=== PATIENT | female | born 1980 | race Hispanic/Latino ===

== ENCOUNTER 2018-07-04 12:41 | Day surgery (SDC) | payer SELFPAY ==
[2018-07-04 13:13] LABS: #Eosinphils 0.1 thou/uL (0.0-0.7); #Lymphocytes 1.8 thou/uL (1.20-3.40); #Monocytes 0.4 thou/uL (0.11-0.59); #Neutrophils 1.7 thou/uL (1.40-6.50); %Basophils 0.6 % (0.0-1.0); %Eosinophils 1.9 % (0.0-10.0); %Lymphocytes 45.9 % (21.0-51.0); %Monocytes 9.2 % (0.0-10.0); %Neutrophils 42.4 % (42.0-75.0); Hemoglobin 10.8 g/dL (12.0-16.0); Mean Corpuscular HGB CONC 32.3 g/dL (32.0-36.0); Mean Corpuscular Hemoglobin 26.4 pg (27.0-31.0); Mean Corpuscular Volume 81.8 fL (78.0-98.0); Mean Platelet Volume 9.2 fL (7.4-10.4); Platelet Count 182 thou/uL (130-400); RBC Distribution Width 13.3 % (11.5-14.5); Red Blood Cell (RBC) Count 4.07 mill/uL (4.20-5.40); White Blood Cell (WBC) Count 3.9 thou/uL (4.8-10.8)
[2018-07-04 13:18] LABS: Bilirubin Negative (Negative); Blood, Urine Negative (Negative); Clarity CLEAR (Clear); Glucose, Urine (Dipstick) Negative (Negative); Leukocyte Negative (Negative); Nitrite Negative (Negative); Protein, Urine (Dipstick) Negative (Neg-Trace); Urobilinogen 0.2 mg/dL (0.2-1.0); pH, Urine 6.5 (5.0-9.0)
[2018-07-04 13:26] LABS: ALT (SGPT) 12 U/L (8-55); AST (SGOT) 23 U/L (5-34); Albumin 4.4 g/dL (3.5-5.0); Alkaline Phosphatase 34 U/L (40-150); Anion Gap 12 mmol/L (10-20); BUN (Urea Nitrogen) 7 mg/dL (7.0-18.7); Bilirubin, Total 0.5 mg/dL (0.2-1.2); Calc. Creatinine Clearance 0 mL/min (70-130); Calcium 8.9 mg/dL (7.8-10.44); Carbon Dioxide 24 mmol/L (22-29); Chloride 103 mmol/L (98-107); Estimated GFR-MDRD Greater than 90; Globulin 2.5 g/dL (2.4-3.5); Glucose 87 mg/dL (70-105); Potassium 3.5 mmol/L (3.5-5.1); Protein, Total 6.9 g/dL (6.0-8.3); Sodium 135 mmol/L (136-145)
[2018-07-04 13:28] LABS: Pregnancy Test - Urine (BHCG) POSITIVE (Negative); Pregu Control Bar Appear? YES (CONTROL BAR)
[2018-07-04 13:29] LABS: Pregu Control Background? CLEAR/WHITE (CLR/WHITE)
[2018-07-04] MEDS ORDERED: Ketorolac Tromethamine 30 MG/ML VIAL ONE (13:34)
[2018-07-04] MEDS ORDERED: Succinylcholine Chloride 20 MG/ML 10 ml SYRINGE FS ONE (13:34)
[2018-07-04] MEDS ORDERED: Ondansetron PF 4 MG/2 ML Vial ONE (13:34)
[2018-07-04] MEDS ORDERED: Dexamethasone 20 MG/5 ML VIAL ONE (13:34)
[2018-07-04] MEDS ORDERED: Rocuronium Bromide 10 MG/ML (10ML VIAL) ONE (13:34)
[2018-07-04] MEDS ORDERED: Metoclopramide HCl 10 MG/2 ML VIAL ONE (13:34)
[2018-07-04] MEDS ORDERED: Glycopyrrolate 0.2 MG/ML 5 ML SYRINGE ONE (13:34)
[2018-07-04] MEDS ORDERED: PROPOFOL 200 MG/20 ML VIAL ONE (13:34)
--- NOTE | 2018-07-04 14:58 | PDOC.EVN ---
Event Note - Event Note Event Note: TANIA Veterinary Assistant: [id number]: Just called about Ms [place], by ER. Patient in bed 18, s/p BTL by report with suspected ectopic, with possible fluid/blood in CDS. I am on my way for eval. L&D aware I will be off the leon for this case.
[2018-07-04] MEDS ORDERED: Fentanyl 100 MCG/2 ML VIAL ONE (15:37)
--- NOTE | 2018-07-04 15:48 | ULT ---
TRANSVAGINAL PELVIC ULTRASOUND: HISTORY: Pelvic pain. Positive urinary test. COMPARISON: None. TECHNIQUE: Real-time, chase-scale, and color evaluation of the pelvic is performed in a transvaginal approach onl y. FINDINGS: The endometrium measures 1.2 cm in size. The uterus measures 9.6 x 5.2 x 5.7 cm. There is a left adnexal mass with flow. No abnormal left or right ovary is appreciated. Small volum e fluid in the subhepatic space, concerning for early rupture of a left adnexal ectopic . N o intrauterine . CODE CR (DR. WEAVER AT 2:48 PM) POS: [facility]
[2018-07-04] MEDS ORDERED: Midazolam HCl 2 mg/2 ml Vial ONE (15:52)
[2018-07-04] MEDS ORDERED: Bupivacaine HCl 0.5%/Epinephrine 1:200,000/PF 30 ml Vial ONE (16:04)
--- NOTE | 2018-07-04 16:28 | HP ---
TIME OF EVALUATION: 1515 hours. LOCATION: ER, bed 18. REASON FOR EVALUATION: Suspected ectopic and hemoperitoneum. HISTORY OF PRESENT ILLNESS: This is a 37-year-old, G5, P5, with a history of a BTL 5 years ago, who presented now with increasing pelvic pain first present on Monday and now worsening. She denies any vaginal bleeding, although she does have some pink-tinged discharge. The BTL was done 5 years ago at the [facility], and she is unclear of who that physician was. She has no rectal bleeding, nausea or vomiting, or any history of recent trauma. PAST MEDICAL HISTORY: Significant for gastritis, and she is currently being treated by amoxicillin and Flagyl by Dr. Hoyt. ALLERGIES: NONE. PAST SURGICAL HISTORY: Recent colonoscopy due to the gastritis diagnosis, and this was negative except for possibly a small benign polyp. OB HISTORY: She is a G5, P5, with vaginal deliveries. SOCIAL HISTORY: Negative for alcohol, tobacco, or drug use. PHYSICAL EXAMINATION: VITAL SIGNS: Pulse is 87, blood pressure is 121/68, and she is afebrile. GENERAL: Clinically, she is in no acute distress, but looks like she is having some discomfort. ABDOMEN: When I checked the abdomen, she had some pain on deep palpation, concerning for rebound. GENITOURINARY: There was no active vaginal bleeding. LABORATORY DATA: Showed a beta-hCG of around 3000, and there is some questionable fluid/organized clot in the cul-de-sac. Hematocrit value on admission was 33. INTERVENTIONS ORDERED: I have ordered a type and Rh and a crossmatch. ASSESSMENT: This is a 37-year-old, G5, P5, status post bilateral tubal ligation in the past with a beta-hCG of 3000, nothing in the uterus, and suspected left ectopic with possible hemoperitoneum. PLAN: 1. I have discussed laparoscopic intervention at this time rather than methotrexate. 2. I discussed methotrexate with the patient and family members, but methotrexate is not recommended in the setting of possible hemoperitoneum. 3. I have ordered a type and cross for 2 units to be on standby. 4. RhoGAM if Rh negative. 5. I discussed with the patient informed consent and did the informed consent form with her. She is aware that she will lose the tube, which is not that much of an issue since she has had a tubal ligation. 6. I discussed with her possible laparotomy and possible blood transfusion if needed. 7. I discussed risks of laparoscopy, which include damage to bowel, blood vessels, and other organs. 8. Dr. Deanne Mackay is aware and is with me now, and she will function as my assist. 9. Dr. Gomez is aware with Anesthesia, and I have also called the OR. Job ID: [id number]
[2018-07-04] MEDS ORDERED: HYDROcodone/Acetaminophen 5/325 mg Tablet PO PRN (17:36)
[2018-07-04] MEDS ORDERED: Ondansetron PF 4 MG/2 ML Vial IVP PRN (17:36)
--- NOTE | 2018-07-04 17:36 | PDOC.OP ---
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
[2018-07-04] MEDS ORDERED: Meperidine HCl/PF 25 MG/ML VIAL ONE (17:38)
[2018-07-04] MEDS ORDERED: Lactated Ringer's 1,000 ML IV SCH (17:45)
[2018-07-04] MEDS ORDERED: Famotidine/PF 20 mg/2ml Vial ONE (17:45)
--- NOTE | 2018-07-04 18:22 | OP ---
DATE OF PROCEDURE: 07/04/2018 LOCATION: OR at [facility] in [place]. PREOPERATIVE DIAGNOSIS: Suspected hemoperitoneum and ruptured left ectopic. POSTOPERATIVE DIAGNOSES: 1. Suspected hemoperitoneum and ruptured left ectopic. 2. Confirmed ruptured ectopic on the left side and hemoperitoneum. PROCEDURES PERFORMED: 1. Diagnostic laparoscopy. 2. Operative laparoscopy with left salpingectomy (distal). BANQUET SERVER: Deanne Mackay MD ANESTHESIA: General. IV FLUIDS: 1700 mL of crystalloid. URINE OUTPUT: About 100 mL yellow urine by Potter. ESTIMATED BLOOD LOSS: About 200 mL of clotted blood in the pelvic cavity. FINDINGS: 1. There is about an 8-week size uterus on laparoscopic inspection. 2. There is a normal right adnexa with evidence of a prior tubal ligation. 3. The left adnexa has a 4 to 5 cm adherent clot at the fimbrial end. 4. There is evidence of a tubal ligation on the left tube. 5. There is evidence of an ectopic in the distal portion of the tube. 6. Hemostasis postprocedure. COMPLICATIONS: None. PATHOLOGY: Left tubal segment. COUNTS: Correct. DISPOSITION: To postop/recovery, where the patient will be observed and then likely sent home from recovery. INDICATION: This is a patient, who presented status post BTL 5 years ago with suspected hemoperitoneum on ultrasound. Although, she appeared hemodynamically stable with vital signs, she appeared to be getting ill with increasing abdominal pain, as we were waiting for the OR. The suspicion was that she had a ruptured left ectopic. DESCRIPTION OF PROCEDURE: The patient was taken to the OR, where she was placed under general endotracheal anesthesia. She was placed in dorsal lithotomy position in Domenico stirrups, and all pressure points were adequately padded. Deep hyperflexion and external rotation were avoided in the positioning process. The patient's vulva, vagina, and abdomen were all prepped in the usual sterile fashion. I placed cover gloves over my first pair of gloves and proceeded to the vaginal portion of the case. I placed a Graves bivalve speculum for visualization of the cervix, and the cervix was grossly normal. I placed a single-tooth tenaculum on the anterior lip of the cervix in order to place a Hulka intrauterine manipulator. This was done without complication. The single-tooth tenaculum and the speculum were then removed and I placed a Potter catheter. We then turned our attention to the patient's abdomen after my cover gloves were removed. Abdomen had been prepped and draped already. An infraumbilical skin incision was made in the area of the old tubal ligation scar. Next, a 5 mm laparoscopic trocar was placed under direct visualization without complications. We did not do a Veress needle as the fascia had already been entered with skin incision. Upon entry into the abdominopelvic cavity, we noted blood in the abdomen with a big adherent clot on the left side. Uterus was otherwise normal as was the right adnexa, except for the evidence of a prior tubal ligation. We then placed 2 accessory ports on the right and the left, and the left accessory port was 10 mm in size to allow for the catch bag to be placed. All laparoscopic trocars were placed under direct visualization and no injury to vessels or other internal structures were noted. I used a LigaSure device to free up the affected tube on the left and the distal salpingectomy was performed without complication using the ligature. This was placed in the catch bag, and the bag was then removed from the 10-mm port site. After confirming hemostasis, we performed copious irrigation and all the clots were removed. This was about 200 mL of blood clot in the abdomen. It is important to note that there looked to be like some chorionic tissue within this clot, but I was not able to capture it as it was friable and became sucked up into the suction catheter and went into the suction container. We elected not to filter it and send it as it was clearly coming from the left affected tube. After all the clot was removed, Kahlil powder was placed over the left tubal site for added hemostasis. There was no excessive bleeding noted. It is important to note that the left ovary was normal and not affected in this procedure. We left the remaining gas out of the abdomen. The patient tolerated the procedure well. All ports were closed with 3-0 Vicryl, and Dermabond was closed over the skin. The gas had been released again prior to closure. Single-tooth tenaculum was taken out of the vagina, and the patient was taken down over dorsal lithotomy position. There were no complications noted, and the patient seemed to tolerate the procedure well. Job ID: [id number]
--- NOTE | 2018-07-04 18:26 | PDOC.EVN ---
Event Note - Event Note Event Note: Postop: Patient and family seen in Same Day Surgery area after recovery Patient doing well...pulse 80s I discussed the surgical procedure and DX I recommended follow up in 2 weeks at [facility] I told her that she can no longer rely on the BTL as control and that other BCMs can be discussed with her at the follow up visit.
[2018-07-04] MEDS ORDERED: HYDROcodone/Acetaminophen 5/325 mg Tablet ONE (19:05)
== END 2018-07-04 19:50 | disposition home or self-care (01) ==
LOC: ERS 12:41 → MERGE 17:58 → SDC 17:58
PROVIDERS: ATTEND Obstetrics & Gynecology
PROC: 0UB64ZZ Excision of Left Fallopian Tube, Percutaneous Endoscopic Approach (ICD-10-PCS; principal; 2018-07-04)
PROC: 10T24ZZ Resection of Products of Conception, Ectopic, Percutaneous Endoscopic Approach (ICD-10-PCS; principal; 2018-07-04)
DX: O00.102 Left tubal pregnancy without intrauterine pregnancy (principal); N83.8 Other noninflammatory disorders of ovary, fallopian tube and broad ligament; O08.89 Other complications following an ectopic and molar pregnancy; K66.1 Hemoperitoneum; K29.70 Gastritis, unspecified, without bleeding
CPT/HCPCS: 36415; 76856; 80053; 81003; 81025; 84702; 85025; 86850; 86900; 86901; 88305; J0670; J1100; J1885; J2175; J2250; J2405; J2704; J2765; J3010; S0028

== ENCOUNTER 2019-05-04 22:38 | Emergency (ER) | payer SELFPAY | END 2019-05-04 23:05 | disposition home or self-care (01) | LOC: ERS 22:38 | DX: H92.01 Otalgia, right ear (principal) | CPT/HCPCS: 99282 ==

== ENCOUNTER 2019-11-18 08:43 | Outpatient (CLI) | payer OTHER ==
--- NOTE | 2019-11-18 10:28 | ULT ---
TRANSABDOMINAL AND TRANSVAGINAL PELVIC ULTRASOUND WITH SHELTON SCALE AND COLOR FLOW AND SPECTRAL DOPPLER IMAGING: History A 39-year-old female with abnormal uterine bleeding. FINDINGS: The uterus measures 9.6 x 5.5 x 4.5 cm without focal mass or endometrial fluid. The endometrium patricia ures 1 cm in thickness. The right ovary measures 2.8 x 1.7 x 1.5 cm with normal flow. No adnexal masses are seen on either s iftikhar. The left ovary is not visualized. No free fluid is seen in the cul-de-sac. IMPRESSION: Nonvisualization of the left ovary; otherwise, unremarkable exam. POS: [facility]
== END 2019-11-18 08:44 | disposition home or self-care (01) ==
LOC: BICULT 08:43
PROVIDERS: ATTEND Nurse Practitioner Women's Health
DX: N93.9 Abnormal uterine and vaginal bleeding, unspecified (principal)
CPT/HCPCS: 76856

== ENCOUNTER 2019-12-10 13:59 | Emergency (ER) | payer SELFPAY ==
[2019-12-10 14:53] LABS: #Eosinphils 0.1 thou/uL (0.0-0.7); #Lymphocytes 2.1 thou/uL (1.20-3.40); #Monocytes 0.4 thou/uL (0.11-0.59); %Basophils 0.1 % (0.0-1.0); %Eosinophils 1.3 % (0.0-10.0); %Lymphocytes 46.9 % (21.0-51.0); %Monocytes 8.2 % (0.0-10.0); %Neutrophils 43.5 % (42.0-75.0); Hemoglobin 13.1 g/dL (12.0-16.0); Mean Corpuscular HGB CONC 33.4 g/dL (32.0-36.0); Mean Corpuscular Hemoglobin 28.7 pg (27.0-31.0); Mean Corpuscular Volume 85.9 fL (78.0-98.0); Mean Platelet Volume 8.6 fL (7.4-10.4); Platelet Count 223 thou/uL (130-400); RBC Distribution Width 11.3 % (11.5-14.5); Red Blood Cell (RBC) Count 4.58 mill/uL (4.20-5.40); White Blood Cell (WBC) Count 4.6 thou/uL (4.8-10.8)
[2019-12-10 15:04] LABS: Bilirubin Negative (Negative); Blood, Urine Negative (Negative); Clarity Clear (Clear); Glucose, Urine (Dipstick) Normal (Negative); Ketone, Urine Negative (Negative); Leukocyte Negative Leu/uL (Negative); Nitrite Negative (Negative); Protein, Urine (Dipstick) Negative (Neg-Trace); Urobilinogen Normal mg/dL (Less than 2)
[2019-12-10 15:09] LABS: Pregnancy Test - Urine (BHCG) Negative (Negative); Pregu Control Bar Appear? YES (CONTROL BAR); Specific Gravity 1.003 (1.002-1.036); Specific Gravity, Urine 1.003 (1.002-1.036)
[2019-12-10 15:10] LABS: Pregu Control Background? CLEAR/WHITE (CLR/WHITE)
[2019-12-10 15:12] LABS: ALT (SGPT) 10 U/L (8-55); AST (SGOT) 16 U/L (5-34); Albumin 4.5 g/dL (3.5-5.0); Alkaline Phosphatase 39 U/L (40-110); Anion Gap 12 mmol/L (10-20); BUN (Urea Nitrogen) 8 mg/dL (7.0-18.7); Bilirubin, Total 0.5 mg/dL (0.2-1.2); Calc. Creatinine Clearance 0 mL/min (70-130); Calcium 9.1 mg/dL (7.8-10.44); Carbon Dioxide 27 mmol/L (22-29); Chloride 104 mmol/L (98-107); Estimated GFR-MDRD Greater than 90; Globulin 2.8 g/dL (2.4-3.5); Glucose 91 mg/dL (70-105); Lipase 26 U/L (8-78); Potassium 3.6 mmol/L (3.5-5.1); Protein, Total 7.3 g/dL (6.0-8.3); Sodium 139 mmol/L (136-145)
--- NOTE | 2019-12-10 16:50 | ULT ---
ULTRASOUND PELVIC ULTRASOUND TRANSVAGINAL DOPPLER DUPLEX: DATE: 12/10/2019 HISTORY: 39-year-old female with pelvic pain TECHNIQUE: Transabdominal transducer and endovaginal transducer used to visualize intrapelvic contents with chase scale, color-flow, and spectral analysis. FINDINGS: Uterus:8.5 x 4.5 x 5.0 cm. Endometrial stripe:0.7 cm (7 mm). Right ovary:2.6 x 2.4 x 0.9 cm. Left ovary:2.3 x 3 x 1.5 cm. Uterine leiomyoma (fibroid):None Blood flow in ovaries:Bilaterally demonstrated Ovarian cyst:A 1.7 cm round exophytic cyst arising from left ovary. Free fluid in the cul-de-sac:None IMPRESSION: 1) incidental finding of a small 1.7 cm exophytic cyst from left ovary. 2) otherwise negative.
== END 2019-12-10 17:33 | disposition home or self-care (01) ==
LOC: ERS 13:59
DX: N83.202 Unspecified ovarian cyst, left side (principal)
CPT/HCPCS: 36415; 76856; 80053; 81003; 81025; 83690; 84702; 85025; 86900; 86901

== ENCOUNTER 2019-12-31 22:14 | Emergency (ER) | payer SELFPAY ==
[2019-12-31 22:53] LABS: Bilirubin Negative (Negative); Blood, Urine Negative (Negative); Clarity Clear (Clear); Glucose, Urine (Dipstick) Normal (Negative); Ketone, Urine Negative (Negative); Leukocyte Negative Leu/uL (Negative); Nitrite Negative (Negative); Protein, Urine (Dipstick) Negative (Neg-Trace); Specific Gravity, Urine 1.029 (1.002-1.036); pH, Urine 6.5 (5.0-9.0)
[2019-12-31 23:09] LABS: Pregnancy Test - Urine (BHCG) Negative (Negative); Pregu Control Background? CLEAR/WHITE (CLR/WHITE); Pregu Control Bar Appear? YES (CONTROL BAR); Specific Gravity 1.029 (1.002-1.036)
[2020-01-01 21:05] LABS: Chlamydia by PCR Not Detected (NotDetected); GC by PCR Not Detected (NotDetected)
== END 2019-12-31 23:31 | disposition home or self-care (01) ==
LOC: ERS 22:14
DX: N93.9 Abnormal uterine and vaginal bleeding, unspecified (principal); N88.8 Other specified noninflammatory disorders of cervix uteri
CPT/HCPCS: 81003; 81025; 87086; 87255; 87480; 87491; 87510; 87591; 87660; 99284

== ENCOUNTER 2020-01-09 22:31 | Emergency (ER) | payer SELFPAY | END 2020-01-10 00:04 | disposition home or self-care (01) | LOC: ERS 22:31 | DX: N89.8 Other specified noninflammatory disorders of vagina (principal) ==

== ENCOUNTER 2024-03-11 12:31 | Emergency (ER) | payer SELFPAY ==
[2024-03-11] MEDS ORDERED: Acetaminophen 500 MG TAB ONE (13:38)
[2024-03-11] MEDS ORDERED: Ondansetron ODT 4 MG TAB ONE (13:38)
== END 2024-03-11 13:42 | disposition home or self-care (01) ==
LOC: ERS 12:31
DX: B34.9 Viral infection, unspecified (principal)
CPT/HCPCS: 87428; 99283; Q0162